=== PATIENT | female | born 1960 | race Two or more races ===

== ENCOUNTER 2023-01-31 09:03 | Day surgery (SDC) | payer MEDICARE, MEDICAID ==
[2023-01-31] MEDS ORDERED: Dextrose 5%-Lactated Ringers 1,000 ML IV SCH (09:45)
[2023-01-31] MEDS ORDERED: Propofol 200 MG/20 ML SDV ONE (11:53)
[2023-01-31] MEDS ORDERED: Midazolam 1 MG/ML 2 ML SDV ONE (11:54)
[2023-01-31] MEDS ORDERED: fentaNYL 50 MCG/ML SDV ONE (11:54)
[2023-01-31 13:15] VITALS: BP 128/66; PULSE 66
== END 2023-01-31 13:35 | disposition home or self-care (01) ==
LOC: JP.SDS 09:03
PROVIDERS: ATTEND Surgery
DX: K57.31 Diverticulosis of large intestine without perforation or abscess with bleeding (principal); K64.9 Unspecified hemorrhoids; R13.10 Dysphagia, unspecified; J45.909 Unspecified asthma, uncomplicated; D64.9 Anemia, unspecified; Z98.84 Bariatric surgery status; Z88.0 Allergy status to penicillin; Z88.5 Allergy status to narcotic agent; Z88.8 Allergy status to other drugs, medicaments and biological substances
CPT/HCPCS: J2250; J2704; J3010; J7121

== ENCOUNTER 2023-02-07 08:14 | Inpatient (IN) | payer MEDICARE, MEDICAID ==
[~2023-02-07 08:14] MED LIST: Scopolamine 1.5 MG Transdermal Patch TOP SCH
[2023-02-07] MEDS ORDERED: Dextrose 5%-Lactated Ringers 1,000 ML IV SCH ×2 (09:00→14:30)
[2023-02-07] MEDS ORDERED: fentaNYL 250 MCG/5 ML SDV ONE ×2 (09:06→10:11)
[2023-02-07] MEDS ORDERED: Ondansetron 4 MG/2 ML SDV ONE ×2 (09:07→10:11)
[2023-02-07] MEDS ORDERED: Succinylcholine 200 MG/10 ML MDV ONE ×2 (09:07→10:11)
[2023-02-07] MEDS ORDERED: Neostigmine Methylsulfate 1 MG/ML 5 ML Syringe ONE ×2 (09:07→10:11)
[2023-02-07] MEDS ORDERED: Rocuronium 50 MG/5 ML Vial ONE ×3 (09:07→12:38)
[2023-02-07] MEDS ORDERED: Propofol 200 MG/20 ML SDV ONE ×2 (09:07→10:11)
[2023-02-07] MEDS ORDERED: Dexamethasone 4 MG/ML SDV ONE ×2 (09:07→10:11)
[2023-02-07] MEDS ORDERED: Glycopyrrolate 0.2 MG/ML 5 ML MDV ONE ×2 (09:07→10:11)
[2023-02-07] MEDS ORDERED: Ketamine 15 MG in Sodium Chloride 0.9% 19.85 ML IV SCH (09:30)
[2023-02-07] MEDS ORDERED: Ketamine 500 MG/5 ML MDV IV SCH (09:30)
[2023-02-07] MEDS ORDERED: ceFAZolin 2 GM in Premix Bag 1 BAG IV ONE (09:30)
[2023-02-07] MEDS ORDERED: Albuterol/Ipratropium 3.0-0.5 MG/3 ML Neb Soln NEB ONE (10:12)
[2023-02-07] MEDS ORDERED: Bupivacaine 0.5% 50 ML MDV ONE (10:48)
[2023-02-07] MEDS ORDERED: Lidocaine 1% with EPINEPHrine 1:100,000 50 ML MDV ONE (10:48)
[2023-02-07] MEDS ORDERED: Naloxone 0.4 MG/ML SDV IVPUSH PRN (11:27)
[2023-02-07] MEDS ORDERED: Ondansetron 4 MG/2 ML SDV IVPUSH PRN ×2 (11:27→15:00)
[2023-02-07] MEDS ORDERED: diphenhydrAMINE 25 MG Cap PO PRN (11:27)
[2023-02-07] MEDS ORDERED: diphenhydrAMINE 50 MG/ML SDV IVPUSH PRN ×2 (11:27→15:00)
[2023-02-07] MEDS ORDERED: fentaNYL/Normal Saline 600 MCG/30 ML PCA Vial IV PRN (11:30)
[2023-02-07] MEDS: Meropenem 500 MG SDV ONE ×2 (11:40→12:58)
[2023-02-07] MEDS ORDERED: Linezolid 600 MG/300 ML Premix Bag IRR ONE ×2 (11:40→12:58)
[2023-02-07] MEDS ORDERED: Naloxone 0.4 MG/ML SDV IV PRN (12:00)
[2023-02-07] MEDS ORDERED: Meropenem 500 MG SDV ONE (12:47)
[2023-02-07] MEDS ORDERED: Lactated Ringers 1,000 ML ONE (12:59)
[2023-02-07] MEDS ORDERED: fentaNYL 100 MCG/2 ML SDV ONE ×2 (13:05→13:30)
[2023-02-07] MEDS ORDERED: Albuterol/Ipratropium 3.0-0.5 MG/3 ML Neb Soln INH PRN (15:00)
[2023-02-07] MEDS ORDERED: hydrOXYzine HCl 50 MG/ML SDV IM PRN (15:00)
[2023-02-07] MEDS ORDERED: Metoclopramide 10 MG/2 ML SDV IVPUSH PRN (15:00)
[2023-02-07] MEDS ORDERED: Labetalol 20 MG/4 ML Syringe IVPUSH PRN (15:00)
[2023-02-07] MEDS: Cyclobenzaprine 10 MG Tab PO PRN (15:04)
[2023-02-07] MEDS: hydrOXYzine HCl 50 MG/ML SDV IM PRN (15:08)
[2023-02-07] MEDS: Albuterol/Ipratropium 3.0-0.5 MG/3 ML Neb Soln INH SCH ×2 (15:15→21:26)
[2023-02-07] MEDS ORDERED: Non-Formulary Medication 1 Each IV ONE (15:32)
[2023-02-07] MEDS ORDERED: Pantoprazole 40 MG Vial IVPUSH SCH (16:00)
[2023-02-07] MEDS: Sodium Ferric Gluconate Cmplex 250 MG in Sodium Chloride 0.9% 100 ML IV SCH (16:18)
[2023-02-07] MEDS: cefOXitin 2 GM in Sodium Chloride 0.9% 50 ML IV SCH ×2 (18:34→23:17)
[2023-02-07] MEDS: MVI, Adult with Vitamin K 10 ML, Thiamine 200 MG, Zinc/Copper/Manganese/Selenium 1 ML i... IV SCH ×4 (19:48)
[2023-02-07] MEDS ORDERED: Acetaminophen 500 MG Tab PO PRN (20:00)
[2023-02-08] MEDS: Acetaminophen 500 MG Tab PO SCH ×4 (01:59→22:28)
[2023-02-08 04:39] LABS: BASOPHILS PERCENT AUTO 0.1 % (0.1-1.3); HEMATOCRIT 36.8 % (34.3-46.0); IMMATURE GRAN ABSOLUTE AUTO 0.04 K/uL (0.00-0.23); IMMATURE GRAN PERCENT AUTO 0.4 % (0.0-0.7); LYMPHOCYTES PERCENT AUTO 6.2 % (11.4-47.7); MEAN CORPUSCULAR HEMOGLOBIN 29.8 pg (31.6-35.5); MEAN CORPUSCULAR HGB CONC 32.6 g/dL (31.6-35.5); MEAN CORPUSCULAR VOLUME 91.3 fL (81.4-99.0); MONOCYTES ABSOLUTE AUTO 0.66 K/uL (0.20-0.90); MONOCYTES PERCENT AUTO 6.8 % (3.3-12.6); NEUTROPHILS ABSOLUTE AUTO 8.38 K/uL (1.0-7.6); NEUTROPHILS PERCENT AUTO 86.5 % (40.0-78.1); PLATELET COUNT,PLT 160 K/uL (130-375); RED BLOOD CELL COUNT 4.03 M/uL (3.77-5.24); WHITE BLOOD CELL COUNT,WBC 9.7 K/uL (3.2-11.0)
[2023-02-08 05:02] LABS: BASOPHILS ABSOLUTE AUTO 0.01 K/uL (0.00-0.10)
[2023-02-08 05:21] LABS: A/G RATIO 0.8 (1.2-2.2); ALANINE AMINOTRANSFERASE,ALT 83 U/L (12-78); ALBUMIN 2.6 g/dL (3.4-5.0); ALKALINE PHOSPHATASE 62 U/L (46-116); ASPARTATE AMNIOTRANSFERASE,AST 114 U/L (15-37); BILIRUBIN TOTAL 0.4 mg/dL (0.2-1.0); BLOOD UREA NITROGEN,BUN 11 mg/dL (7-18); CALCIUM 7.8 mg/dL (8.5-10.1); CARBON DIOXIDE,CO2 24 mmol/L (21-32); CHLORIDE,CL 109 mmol/L (100-108); CREATININE 0.8 mg/dL (0.6-1.0); EST CRCL DRUG DOSING (CG) 57.67 mL/min; ESTIMATED GFR 83 mL/min (>60); GLUCOSE RANDOM 155 mg/dL (74-106); MAGNESIUM 1.7 mg/dL (1.8-2.4); PHOSPHORUS 2.6 mg/dL (2.5-4.9); POTASSIUM,K 4.2 mmol/L (3.6-5.2); PRO B-TYPE NATRIUR PEPT,BNPPRO 552 pg/mL (5-125); PROTEIN TOTAL,TP 5.8 g/dL (6.4-8.2); SODIUM,NA 141 mmol/L (140-148)
[2023-02-08 05:25] LABS: ANION GAP 12.2 mmol/L (5.0-14.0)
[2023-02-08] MEDS: cefOXitin 2 GM in Sodium Chloride 0.9% 50 ML IV SCH ×3 (05:31→17:31)
[2023-02-08] MEDS: Albuterol/Ipratropium 3.0-0.5 MG/3 ML Neb Soln INH SCH ×3 (06:57→14:29)
[2023-02-08] MEDS: Formoterol/Mometasone 200-5 MCG 8.8 GM Inhaler IH SCH (08:08)
[2023-02-08] MEDS ORDERED: Dextrose 5%-Lactated Ringers 1,000 ML IV SCH (08:15)
[2023-02-08] MEDS ORDERED: Pregabalin 100 MG Cap PO SCH (09:00)
[2023-02-08] MEDS: Magnesium Sulfate/Water 2 GM/50 ML BAG IV SCH ×2 (09:24→15:22)
[2023-02-08] MEDS: Vitamin A 100,000 Units/2 ML SDV IM SCH (09:28)
[2023-02-08] MEDS: Ergocalciferol (Vitamin D2) 1.25 MG Cap PO SCH (09:28)
[2023-02-08] MEDS: Pantoprazole 40 MG Delayed-Release Granules 1 Packet PO SCH (16:55)
[2023-02-08] MEDS: Sodium Ferric Gluconate Cmplex 250 MG in Sodium Chloride 0.9% 100 ML IV SCH (18:14)
[2023-02-08] MEDS: hydrOXYzine HCl 50 MG/ML SDV IM PRN (19:30)
[2023-02-09] MEDS: Albuterol/Ipratropium 3.0-0.5 MG/3 ML Neb Soln INH SCH ×5 (00:13→21:26)
[2023-02-09] MEDS: MVI, Adult with Vitamin K 10 ML, Thiamine 200 MG, Zinc/Copper/Manganese/Selenium 1 ML i... IV SCH ×4 (00:14)
[2023-02-09] MEDS: Magnesium Sulfate/Water 2 GM/50 ML BAG IV SCH (00:14)
[2023-02-09] MEDS: HYDROmorphone 2 MG Tab PO PRN ×3 (02:23→18:22)
[2023-02-09] MEDS: Acetaminophen 500 MG Tab PO SCH ×2 (06:20→14:16)
[2023-02-09] MEDS ORDERED: Cyanocobalamin (Vitamin B12) 1,000 MCG/ML SDV IM ONE (09:00)
[2023-02-09] MEDS: Formoterol/Mometasone 200-5 MCG 8.8 GM Inhaler IH SCH (09:25)
[2023-02-09] MEDS: Docusate Sodium 100 MG Cap PO SCH ×2 (10:03→21:21)
[2023-02-09] MEDS: Magnesium Hydroxide 400 MG/5 ML Susp 30 ML Cup PO PRN (10:03)
[2023-02-09] MEDS: Bisacodyl 5 MG Tab PO SCH ×2 (10:03→21:21)
[2023-02-09] MEDS: Vitamin A 100,000 Units/2 ML SDV IM SCH (10:04)
[2023-02-09] MEDS: Pantoprazole 40 MG Delayed-Release Granules 1 Packet PO SCH (16:50)
[2023-02-09] MEDS: Cyclobenzaprine 10 MG Tab PO PRN (21:26)
[2023-02-10] MEDS: Albuterol/Ipratropium 3.0-0.5 MG/3 ML Neb Soln INH SCH ×4 (07:24→20:45)
[2023-02-10] MEDS: Bisacodyl 5 MG Tab PO SCH ×2 (09:03→20:45)
[2023-02-10] MEDS: Vitamin A 100,000 Units/2 ML SDV IM SCH (09:03)
[2023-02-10] MEDS: Docusate Sodium 100 MG Cap PO SCH ×2 (09:03→20:45)
[2023-02-10] MEDS: Formoterol/Mometasone 200-5 MCG 8.8 GM Inhaler IH SCH (09:13)
[2023-02-10] MEDS: HYDROmorphone 2 MG Tab PO PRN ×2 (09:41→19:57)
[2023-02-10] MEDS: Magnesium Hydroxide 400 MG/5 ML Susp 30 ML Cup PO PRN (09:41)
[2023-02-10] MEDS: Pantoprazole 40 MG Delayed-Release Granules 1 Packet PO SCH (17:02)
[2023-02-11] MEDS: HYDROmorphone 2 MG Tab PO PRN ×2 (00:37→08:21)
[2023-02-11] MEDS: Albuterol/Ipratropium 3.0-0.5 MG/3 ML Neb Soln INH SCH (07:21)
[2023-02-11 07:28] VITALS: BP 115/34; PULSE 82
[2023-02-11] MEDS: Formoterol/Mometasone 200-5 MCG 8.8 GM Inhaler IH SCH (08:03)
[2023-02-11] MEDS: Ergocalciferol (Vitamin D2) 1.25 MG Cap PO SCH (08:18)
[2023-02-11] MEDS: Bisacodyl 5 MG Tab PO SCH (08:20)
[2023-02-11] MEDS: Docusate Sodium 100 MG Cap PO SCH (08:20)
[2023-02-11] MEDS ORDERED: Vitamin A 10,000 Unit Cap PO SCH (09:00)
== END 2023-02-11 09:52 | disposition home or self-care (01) | DRG 355 ==
LOC: JP.SDS 08:14 → JP.MS 13:45
PROVIDERS: ADMIT Surgery; ATTEND Surgery
PROC: 0WUF0JZ Supplement Abdominal Wall with Synthetic Substitute, Open Approach (ICD-10-PCS; principal; 2023-02-07)
PROC: 0FB20ZX Excision of Left Lobe Liver, Open Approach, Diagnostic (ICD-10-PCS; 2023-02-07)
PROC: 0WPF0JZ Removal of Synthetic Substitute from Abdominal Wall, Open Approach (ICD-10-PCS; 2023-02-07)
PROC: 0UB20ZZ Excision of Bilateral Ovaries, Open Approach (ICD-10-PCS; 2023-02-07)
PROC: 0DBW0ZX Excision of Peritoneum, Open Approach, Diagnostic (ICD-10-PCS; 2023-02-07)
PROC: 0UB70ZZ Excision of Bilateral Fallopian Tubes, Open Approach (ICD-10-PCS; 2023-02-07)
DX: K43.2 Incisional hernia without obstruction or gangrene (principal); G89.4 Chronic pain syndrome; D50.9 Iron deficiency anemia, unspecified; E53.8 Deficiency of other specified B group vitamins; F17.210 Nicotine dependence, cigarettes, uncomplicated; J44.9 Chronic obstructive pulmonary disease, unspecified; Z96.651 Presence of right artificial knee joint; F41.9 Anxiety disorder, unspecified; K21.9 Gastro-esophageal reflux disease without esophagitis; N83.201 Unspecified ovarian cyst, right side; N83.202 Unspecified ovarian cyst, left side; F32.A Depression, unspecified; M81.0 Age-related osteoporosis without current pathological fracture; G25.81 Restless legs syndrome; Z98.890 Other specified postprocedural states; Z88.6 Allergy status to analgesic agent; Z88.8 Allergy status to other drugs, medicaments and biological substances; Z88.5 Allergy status to narcotic agent; Z88.0 Allergy status to penicillin; Z90.710 Acquired absence of both cervix and uterus; Z98.84 Bariatric surgery status
CPT/HCPCS: 36415; 80053; 83735; 83880; 84100; 85025; 86304; 88112; 88300; 88305; 88307; 88313; 88341; 88342; 94640; A9270-GY; C1713; C1781; C9113; J0131; J0171; J0330; J0690; J0694; J1100; J2020; J2185; J2405; J2704; J2710; J2795; J2916; J3010; J3410; J3411; J3420; J3475; J3490; J7120; J7121; J7620; U0002

== ENCOUNTER 2023-02-22 07:07 | Inpatient (IN) | payer MEDICARE, MEDICAID ==
[~2023-02-22 07:07] MED LIST changes: +Albuterol/Ipratropium 3.0-0.5 MG/3 ML Neb Soln NEB ONE; +Bupivacaine 0.5% 50 ML MDV ONE; +Dextrose 5%-Lactated Ringers 1,000 ML IV SCH; +Lidocaine 1% with EPINEPHrine 1:100,000 50 ML MDV ONE; +Meropenem 500 MG SDV ONE; +Scopolamine 1.5 MG Transdermal Patch TOP ONE; -Scopolamine 1.5 MG Transdermal Patch TOP SCH
[2023-02-22] MEDS ORDERED: fentaNYL 250 MCG/5 ML SDV ONE ×2 (07:10→10:57)
[2023-02-22] MEDS ORDERED: Glycopyrrolate 0.2 MG/ML 5 ML MDV ONE (07:11)
[2023-02-22] MEDS ORDERED: Ondansetron 4 MG/2 ML SDV ONE (07:11)
[2023-02-22] MEDS ORDERED: Propofol 200 MG/20 ML SDV ONE (07:11)
[2023-02-22] MEDS ORDERED: Dexamethasone 4 MG/ML SDV ONE (07:11)
[2023-02-22] MEDS ORDERED: Rocuronium 50 MG/5 ML Vial ONE ×2 (07:11→10:14)
[2023-02-22] MEDS ORDERED: Neostigmine Methylsulfate 1 MG/ML 5 ML Syringe ONE (07:11)
[2023-02-22] MEDS ORDERED: Succinylcholine 200 MG/10 ML MDV ONE (07:11)
[2023-02-22 07:41] LABS: HEMATOCRIT 38.8 % (34.3-46.0); HEMOGLOBIN 12.3 g/dL (11.2-15.5); MEAN CORPUSCULAR HEMOGLOBIN 30.5 pg (31.6-35.5); MEAN CORPUSCULAR HGB CONC 31.7 g/dL (31.6-35.5); MEAN CORPUSCULAR VOLUME 96.3 fL (81.4-99.0); RED BLOOD CELL COUNT 4.03 M/uL (3.77-5.24); WHITE BLOOD CELL COUNT,WBC 4.7 K/uL (3.2-11.0)
[2023-02-22] MEDS ORDERED: cefOXitin 2 GM in Sodium Chloride 0.9% 100 ML IV ONE (08:00)
[2023-02-22 08:14] LABS: A/G RATIO 0.9 (1.2-2.2); ALANINE AMINOTRANSFERASE,ALT 20 U/L (12-78); ALBUMIN 3.3 g/dL (3.4-5.0); ALKALINE PHOSPHATASE 83 U/L (46-116); ANION GAP 6.1 mmol/L (5.0-14.0); ASPARTATE AMNIOTRANSFERASE,AST 19 U/L (15-37); BILIRUBIN TOTAL 0.4 mg/dL (0.2-1.0); BLOOD UREA NITROGEN,BUN 14 mg/dL (7-18); CALCIUM 8.8 mg/dL (8.5-10.1); CARBON DIOXIDE,CO2 28 mmol/L (21-32); CHLORIDE,CL 107 mmol/L (100-108); CREATININE 0.8 mg/dL (0.6-1.0); EST CRCL DRUG DOSING (CG) 57.43 mL/min; ESTIMATED GFR 83 mL/min (>60); FERRITIN 272 ng/ml (8-388); GLUCOSE RANDOM 100 mg/dL (74-106); MAGNESIUM 2.2 mg/dL (1.8-2.4); PHOSPHORUS 4.2 mg/dL (2.5-4.9); POTASSIUM,K 3.9 mmol/L (3.6-5.2); PROTEIN TOTAL,TP 6.9 g/dL (6.4-8.2); SODIUM,NA 141 mmol/L (140-148)
[2023-02-22] MEDS ORDERED: cefOXitin 2 GM in Sodium Chloride 0.9% 50 ML IV ONE (08:30)
[2023-02-22] MEDS ORDERED: Ketamine 15 MG in Sodium Chloride 0.9% 19.85 ML IV SCH (08:45)
[2023-02-22] MEDS ORDERED: Ketamine 500 MG/5 ML MDV IV SCH (08:45)
[2023-02-22] MEDS: Pregabalin 100 MG Cap PO SCH ×2 (09:04→21:08)
[2023-02-22] MEDS ORDERED: ePHEDrine 50 MG/ML SDV ONE (09:59)
[2023-02-22] MEDS ORDERED: Lactated Ringers 1,000 ML ONE (10:49)
[2023-02-22] MEDS ORDERED: Naloxone 0.4 MG/ML SDV IVPUSH PRN ×2 (10:52→14:25)
[2023-02-22] MEDS ORDERED: diphenhydrAMINE 50 MG/ML SDV IVPUSH PRN ×2 (10:52→14:00)
[2023-02-22] MEDS ORDERED: diphenhydrAMINE 25 MG Cap PO PRN (10:52)
[2023-02-22] MEDS ORDERED: Ondansetron 4 MG/2 ML SDV IVPUSH PRN ×2 (10:52→14:00)
[2023-02-22] MEDS: HYDROmorphone/Normal Saline 6 MG/30 ML PCA Vial IV PRN (10:58)
[2023-02-22] MEDS ORDERED: Linezolid 600 MG/300 ML Premix Bag IRR ONE (11:44)
[2023-02-22] MEDS ORDERED: Acetaminophen 500 MG Tab PO PRN (14:00)
[2023-02-22] MEDS ORDERED: Metoclopramide 10 MG/2 ML SDV IVPUSH PRN (14:00)
[2023-02-22] MEDS ORDERED: Labetalol 20 MG/4 ML Syringe IVPUSH PRN (14:00)
[2023-02-22] MEDS ORDERED: hydrOXYzine HCL 100 MG/2 ML SDV IM PRN (14:00)
[2023-02-22] MEDS: Albuterol/Ipratropium 3.0-0.5 MG/3 ML Neb Soln INH SCH ×2 (14:58→21:08)
[2023-02-22] MEDS: cefOXitin 2 GM in Sodium Chloride 0.9% 50 ML IV SCH ×2 (15:12→19:37)
[2023-02-22] MEDS: Pantoprazole 40 MG Vial IVPUSH SCH (15:18)
[2023-02-22] MEDS ORDERED: MVI, Adult with Vitamin K 10 ML, Thiamine 200 MG, Zinc/Copper/Manganese/Selenium 1 ML i... IV SCH ×4 (16:00)
[2023-02-22] MEDS ORDERED: Pregabalin 100 MG Cap PO SCH (21:00)
[2023-02-22] MEDS: Dextrose 5%-Lactated Ringers 1,000 ML IV SCH (21:03)
[2023-02-22] MEDS: Acetaminophen 500 MG Tab PO SCH (21:08)
[2023-02-22] MEDS: Sennosides/Docusate Sodium 50-8.6 MG Tab PO SCH (21:09)
[2023-02-23] MEDS: cefOXitin 2 GM in Sodium Chloride 0.9% 50 ML IV SCH ×4 (02:06→20:05)
[2023-02-23] MEDS: Dextrose 5%-Lactated Ringers 1,000 ML IV SCH ×2 (02:08→08:14)
[2023-02-23] MEDS: Acetaminophen 500 MG Tab PO SCH (03:57)
[2023-02-23 04:41] LABS: BASOPHILS PERCENT AUTO 0.2 % (0.1-1.3); EOSINOPHILS PERCENT AUTO 0.1 % (0.0-5.4); HEMOGLOBIN 10.5 g/dL (11.2-15.5); IMMATURE GRAN ABSOLUTE AUTO 0.03 K/uL (0.00-0.23); IMMATURE GRAN PERCENT AUTO 0.3 % (0.0-0.7); LYMPHOCYTES ABSOLUTE AUTO 0.84 K/uL (0.8-3.3); LYMPHOCYTES PERCENT AUTO 8.4 % (11.4-47.7); MEAN CORPUSCULAR HEMOGLOBIN 30.6 pg (31.6-35.5); MEAN CORPUSCULAR HGB CONC 31.8 g/dL (31.6-35.5); MEAN CORPUSCULAR VOLUME 96.2 fL (81.4-99.0); MONOCYTES ABSOLUTE AUTO 0.44 K/uL (0.20-0.90); MONOCYTES PERCENT AUTO 4.4 % (3.3-12.6); NEUTROPHILS ABSOLUTE AUTO 8.69 K/uL (1.0-7.6); NEUTROPHILS PERCENT AUTO 86.6 % (40.0-78.1); PLATELET COUNT,PLT 282 K/uL (130-375); RED BLOOD CELL COUNT 3.43 M/uL (3.77-5.24)
[2023-02-23 04:44] LABS: BASOPHILS ABSOLUTE AUTO 0.02 K/uL (0.00-0.10); EOSINOPHILS ABSOLUTE AUTO 0.01 K/uL (0.00-0.40)
[2023-02-23 05:05] LABS: A/G RATIO 0.9 (1.2-2.2); ALANINE AMINOTRANSFERASE,ALT 17 U/L (12-78); ALBUMIN 2.4 g/dL (3.4-5.0); ALKALINE PHOSPHATASE 57 U/L (46-116); ASPARTATE AMNIOTRANSFERASE,AST 17 U/L (15-37); BILIRUBIN TOTAL 0.3 mg/dL (0.2-1.0); BLOOD UREA NITROGEN,BUN 10 mg/dL (7-18); CALCIUM 7.8 mg/dL (8.5-10.1); CARBON DIOXIDE,CO2 27 mmol/L (21-32); CHLORIDE,CL 109 mmol/L (100-108); CREATININE 0.8 mg/dL (0.6-1.0); EST CRCL DRUG DOSING (CG) 57.43 mL/min; ESTIMATED GFR 83 mL/min (>60); GLUCOSE RANDOM 141 mg/dL (74-106); MAGNESIUM 1.7 mg/dL (1.8-2.4); POTASSIUM,K 4.3 mmol/L (3.6-5.2); PRO B-TYPE NATRIUR PEPT,BNPPRO 307 pg/mL (5-125); PROTEIN TOTAL,TP 5.2 g/dL (6.4-8.2); SODIUM,NA 140 mmol/L (140-148)
[2023-02-23 05:18] LABS: ANION GAP 8.3 mmol/L (5.0-14.0)
[2023-02-23] MEDS: Albuterol/Ipratropium 3.0-0.5 MG/3 ML Neb Soln INH SCH ×4 (07:43→21:17)
[2023-02-23] MEDS: Sennosides/Docusate Sodium 50-8.6 MG Tab PO SCH ×2 (08:15→21:16)
[2023-02-23] MEDS: Pregabalin 100 MG Cap PO SCH (08:15)
[2023-02-23] MEDS: SCOPOLAMINE PATCH CHECK TOP SCH (08:18)
[2023-02-23] MEDS ORDERED: Pregabalin 100 MG Cap PO SCH (09:00)
[2023-02-23] MEDS: Bisacodyl 5 MG Tab PO SCH ×2 (09:17→21:16)
[2023-02-23] MEDS: Magnesium Sulfate/Water 2 GM in Premix Bag 1 BAG IV SCH ×3 (09:17→22:18)
[2023-02-23] MEDS: Docusate Sodium 100 MG Cap PO SCH ×2 (09:17→21:17)
[2023-02-23] MEDS: 1: AA 5%/Calcium/D15W/Lytes 1,000 ML with MVI, Adult with Vitamin K 10 ML, Zinc/Copper/M IV SCH ×3 (13:51)
[2023-02-23] MEDS: Pantoprazole 40 MG Vial IVPUSH SCH (13:53)
[2023-02-23] MEDS ORDERED: Dextrose 5%-Lactated Ringers 1,000 ML IV SCH (14:00)
[2023-02-23] MEDS ORDERED: Vitamin A 10,000 Unit Cap PO ONE (16:00)
[2023-02-23] MEDS: HYDROmorphone/Normal Saline 6 MG/30 ML PCA Vial IV PRN (22:51)
[2023-02-24] MEDS: cefOXitin 2 GM in Sodium Chloride 0.9% 50 ML IV SCH ×4 (02:12→19:28)
[2023-02-24] MEDS: 1: AA 5%/Calcium/D15W/Lytes 1,000 ML with MVI, Adult with Vitamin K 10 ML, Zinc/Copper/M IV SCH ×6 (02:16→14:35)
[2023-02-24] MEDS: Magnesium Sulfate/Water 2 GM in Premix Bag 1 BAG IV SCH ×4 (04:14→21:16)
[2023-02-24 04:22] LABS: BASOPHILS PERCENT AUTO 0.3 % (0.1-1.3); EOSINOPHILS ABSOLUTE AUTO 0.88 K/uL (0.00-0.40); EOSINOPHILS PERCENT AUTO 11.1 % (0.0-5.4); HEMOGLOBIN 10.8 g/dL (11.2-15.5); IMMATURE GRAN PERCENT AUTO 0.3 % (0.0-0.7); LYMPHOCYTES ABSOLUTE AUTO 1.24 K/uL (0.8-3.3); LYMPHOCYTES PERCENT AUTO 15.7 % (11.4-47.7); MEAN CORPUSCULAR HEMOGLOBIN 30.7 pg (31.6-35.5); MEAN CORPUSCULAR HGB CONC 31.8 g/dL (31.6-35.5); MEAN CORPUSCULAR VOLUME 96.6 fL (81.4-99.0); MONOCYTES ABSOLUTE AUTO 0.33 K/uL (0.20-0.90); MONOCYTES PERCENT AUTO 4.2 % (3.3-12.6); NEUTROPHILS ABSOLUTE AUTO 5.43 K/uL (1.0-7.6); NEUTROPHILS PERCENT AUTO 68.4 % (40.0-78.1); PLATELET COUNT,PLT 258 K/uL (130-375); RED BLOOD CELL COUNT 3.52 M/uL (3.77-5.24); WHITE BLOOD CELL COUNT,WBC 7.9 K/uL (3.2-11.0)
[2023-02-24 04:36] LABS: BASOPHILS ABSOLUTE AUTO 0.02 K/uL (0.00-0.10); IMMATURE GRAN ABSOLUTE AUTO 0.02 K/uL (0.00-0.23)
[2023-02-24 04:58] LABS: A/G RATIO 0.8 (1.2-2.2); ALANINE AMINOTRANSFERASE,ALT 19 U/L (12-78); ALBUMIN 2.2 g/dL (3.4-5.0); ALKALINE PHOSPHATASE 61 U/L (46-116); ASPARTATE AMNIOTRANSFERASE,AST 18 U/L (15-37); BILIRUBIN TOTAL 0.3 mg/dL (0.2-1.0); BLOOD UREA NITROGEN,BUN 17 mg/dL (7-18); CALCIUM 7.4 mg/dL (8.5-10.1); CARBON DIOXIDE,CO2 30 mmol/L (21-32); CHLORIDE,CL 105 mmol/L (100-108); CREATININE 0.9 mg/dL (0.6-1.0); EST CRCL DRUG DOSING (CG) 54.79 mL/min; ESTIMATED GFR 72 mL/min (>60); GLUCOSE RANDOM 117 mg/dL (74-106); PHOSPHORUS 3.5 mg/dL (2.5-4.9); POTASSIUM,K 4.2 mmol/L (3.6-5.2); PRO B-TYPE NATRIUR PEPT,BNPPRO 240 pg/mL (5-125); PROTEIN TOTAL,TP 5.1 g/dL (6.4-8.2); SODIUM,NA 138 mmol/L (140-148)
[2023-02-24 05:00] LABS: ANION GAP 7.2 mmol/L (5.0-14.0)
[2023-02-24] MEDS: Albuterol/Ipratropium 3.0-0.5 MG/3 ML Neb Soln INH SCH ×4 (07:54→21:21)
[2023-02-24] MEDS: Bisacodyl 5 MG Tab PO SCH ×2 (08:10→21:16)
[2023-02-24] MEDS: Sennosides/Docusate Sodium 50-8.6 MG Tab PO SCH ×2 (08:10→21:15)
[2023-02-24] MEDS: Docusate Sodium 100 MG Cap PO SCH ×2 (08:11→21:15)
[2023-02-24] MEDS: SCOPOLAMINE PATCH CHECK TOP SCH (08:11)
[2023-02-24] MEDS ORDERED: Cyanocobalamin (Vitamin B12) 1,000 MCG/ML SDV IM ONE (09:00)
[2023-02-24] MEDS: Cyclobenzaprine 10 MG Tab PO PRN (09:08)
[2023-02-24] MEDS: Pantoprazole 40 MG Vial IVPUSH SCH (14:35)
[2023-02-24] MEDS ORDERED: Polyethylene Glycol 3350 Powder 119 GM Bottle PO ONE (20:59)
[2023-02-24] MEDS ORDERED: Polyethylene Glycol 3350 Powder 238 GM Bot ONE (21:26)
[2023-02-25] MEDS: cefOXitin 2 GM in Sodium Chloride 0.9% 50 ML IV SCH ×4 (02:09→19:31)
[2023-02-25] MEDS: 1: AA 5%/Calcium/D15W/Lytes 1,000 ML with MVI, Adult with Vitamin K 10 ML, Zinc/Copper/M IV SCH ×6 (02:15→14:33)
[2023-02-25] MEDS: Magnesium Sulfate/Water 2 GM in Premix Bag 1 BAG IV SCH (04:07)
[2023-02-25] MEDS: Albuterol/Ipratropium 3.0-0.5 MG/3 ML Neb Soln INH SCH ×4 (06:57→20:07)
[2023-02-25] MEDS ORDERED: Central Total Parenteral Nutrition Bag SCH (07:45)
[2023-02-25] MEDS: HYDROmorphone 2 MG Tab PO PRN ×3 (08:28→19:22)
[2023-02-25] MEDS: Sennosides/Docusate Sodium 50-8.6 MG Tab PO SCH ×2 (08:30→20:08)
[2023-02-25] MEDS: Bisacodyl 5 MG Tab PO SCH ×2 (08:30→20:08)
[2023-02-25] MEDS: Docusate Sodium 100 MG Cap PO SCH ×2 (09:40→20:08)
[2023-02-25] MEDS: hydrOXYzine HCl 25 MG Tab PO PRN (12:24)
[2023-02-25] MEDS: Fluconazole 100 MG Tab PO SCH (13:38)
[2023-02-25] MEDS: Pantoprazole 40 MG Vial IVPUSH SCH (14:11)
[2023-02-25] MEDS: Cyclobenzaprine 10 MG Tab PO PRN (21:49)
[2023-02-26] MEDS: 1: AA 5%/Calcium/D15W/Lytes 1,000 ML with MVI, Adult with Vitamin K 10 ML, Zinc/Copper/M IV SCH ×3 (02:46)
[2023-02-26] MEDS: cefOXitin 2 GM in Sodium Chloride 0.9% 50 ML IV SCH ×2 (02:49→08:09)
[2023-02-26 04:27] LABS: HEMATOCRIT 30.6 % (34.3-46.0); HEMOGLOBIN 9.7 g/dL (11.2-15.5); MEAN CORPUSCULAR HEMOGLOBIN 30.5 pg (31.6-35.5); MEAN CORPUSCULAR HGB CONC 31.7 g/dL (31.6-35.5); MEAN CORPUSCULAR VOLUME 96.2 fL (81.4-99.0); RED BLOOD CELL COUNT 3.18 M/uL (3.77-5.24); WHITE BLOOD CELL COUNT,WBC 5.6 K/uL (3.2-11.0)
[2023-02-26] MEDS: HYDROmorphone 2 MG Tab PO PRN (04:28)
[2023-02-26 04:51] LABS: A/G RATIO 0.7 (1.2-2.2); ALANINE AMINOTRANSFERASE,ALT 17 U/L (12-78); ALBUMIN 2.1 g/dL (3.4-5.0); ALKALINE PHOSPHATASE 70 U/L (46-116); ASPARTATE AMNIOTRANSFERASE,AST 15 U/L (15-37); BILIRUBIN TOTAL 0.4 mg/dL (0.2-1.0); BLOOD UREA NITROGEN,BUN 20 mg/dL (7-18); CALCIUM 8.1 mg/dL (8.5-10.1); CARBON DIOXIDE,CO2 29 mmol/L (21-32); CHLORIDE,CL 107 mmol/L (100-108); CREATININE 0.9 mg/dL (0.6-1.0); EST CRCL DRUG DOSING (CG) 54.79 mL/min; ESTIMATED GFR 72 mL/min (>60); GLUCOSE RANDOM 93 mg/dL (74-106); MAGNESIUM 1.9 mg/dL (1.8-2.4); PHOSPHORUS 4.3 mg/dL (2.5-4.9); POTASSIUM,K 4.7 mmol/L (3.6-5.2); PROTEIN TOTAL,TP 5.3 g/dL (6.4-8.2); SODIUM,NA 139 mmol/L (140-148)
[2023-02-26 05:10] LABS: ANION GAP 7.7 mmol/L (5.0-14.0)
[2023-02-26] MEDS: Albuterol/Ipratropium 3.0-0.5 MG/3 ML Neb Soln INH SCH (06:55)
[2023-02-26 07:11] VITALS: BP 126/53; PULSE 84
[2023-02-26] MEDS ORDERED: Central Total Parenteral Nutrition Bag SCH (07:15)
[2023-02-26] MEDS: Docusate Sodium 100 MG Cap PO SCH (08:05)
[2023-02-26] MEDS: Sennosides/Docusate Sodium 50-8.6 MG Tab PO SCH (08:06)
[2023-02-26] MEDS: Fluconazole 100 MG Tab PO SCH (08:06)
[2023-02-26] MEDS: Bisacodyl 5 MG Tab PO SCH (08:06)
[2023-02-26] MEDS: Cyclobenzaprine 10 MG Tab PO PRN (09:15)
[2023-02-26] MEDS: hydrOXYzine HCl 25 MG Tab PO PRN (09:15)
[2023-03-02] MEDS ORDERED: Pregabalin 100 MG Cap PO SCH (09:00)
== END 2023-02-26 09:59 | disposition home or self-care (01) | DRG 749 ==
LOC: JP.SDSSCHI 07:07 → JP.MS 12:50
PROVIDERS: ADMIT Surgery; ATTEND Surgery
PROC: 0DTJ0ZZ Resection of Appendix, Open Approach (ICD-10-PCS; principal; 2023-02-22)
PROC: 0DBL0ZZ Excision of Transverse Colon, Open Approach (ICD-10-PCS; 2023-02-22)
PROC: 0DBV0ZZ Excision of Mesentery, Open Approach (ICD-10-PCS; 2023-02-22)
PROC: 3E0M05Z Introduction of Adhesion Barrier into Peritoneal Cavity, Open Approach (ICD-10-PCS; 2023-02-22)
PROC: 02HV33Z Insertion of Infusion Device into Superior Vena Cava, Percutaneous Approach (ICD-10-PCS; 2023-02-22)
PROC: 3E0436Z Introduction of Nutritional Substance into Central Vein, Percutaneous Approach (ICD-10-PCS; 2023-02-22)
PROC: 0DBW0ZZ Excision of Peritoneum, Open Approach (ICD-10-PCS; 2023-02-22)
DX: C56.3 Malignant neoplasm of bilateral ovaries (principal); E46 Unspecified protein-calorie malnutrition; K66.8 Other specified disorders of peritoneum; K63.89 Other specified diseases of intestine; J44.9 Chronic obstructive pulmonary disease, unspecified; Z98.84 Bariatric surgery status; Z96.651 Presence of right artificial knee joint; G89.29 Other chronic pain; E53.8 Deficiency of other specified B group vitamins; F41.9 Anxiety disorder, unspecified; Z98.890 Other specified postprocedural states; Z90.710 Acquired absence of both cervix and uterus; Z79.899 Other long term (current) drug therapy; Z88.8 Allergy status to other drugs, medicaments and biological substances; Z88.0 Allergy status to penicillin; Z68.20 Body mass index [BMI] 20.0-20.9, adult
CPT/HCPCS: 36415; 76000; 80053; 82378; 82728; 83735; 83880; 84100; 85025; 85027; 86304; 93005; 94640; A9270-GY; C9113; J0131; J0171; J0330; J0694; J1100; J1170; J1642; J2020; J2185; J2405; J2704; J2710; J2795; J3010; J3411; J3420; J3475; J3490; J7120; J7121; J7620

== ENCOUNTER 2023-03-14 06:11 | Day surgery (SDC) | payer MEDICARE, MEDICAID ==
[2023-03-14] MEDS ORDERED: Lidocaine 1% with EPINEPHrine 1:100,000 50 ML MDV ONE (06:35)
[2023-03-14] MEDS ORDERED: Bupivacaine 0.5% 50 ML MDV ONE (06:35)
[2023-03-14] MEDS ORDERED: Propofol 200 MG/20 ML SDV ONE ×2 (07:10→07:40)
[2023-03-14] MEDS ORDERED: fentaNYL 100 MCG/2 ML SDV ONE (07:10)
[2023-03-14] MEDS ORDERED: Midazolam 1 MG/ML 2 ML SDV ONE ×2 (07:10→08:19)
[2023-03-14] MEDS ORDERED: Linezolid 600 MG in Premix Bag 1 BAG IV ONE (07:30)
[2023-03-14] MEDS ORDERED: Dextrose 5%-Lactated Ringers 1,000 ML IV SCH (07:30)
[2023-03-14] MEDS ORDERED: Linezolid 600 MG/300 ML Premix Bag ONE (07:52)
[2023-03-14 09:54] VITALS: BP 112/60; PULSE 80
== END 2023-03-14 10:43 | disposition home or self-care (01) ==
LOC: JP.SDS 06:11
PROVIDERS: ATTEND Surgery
DX: Z45.2 Encounter for adjustment and management of vascular access device (principal)
CPT/HCPCS: 77001; 77001-26; C1788; J1642; J2020; J2250; J2704; J3010; J3490; J7121